=== PATIENT | female | born 1960 | race Caucasian/White ===

== ENCOUNTER 2017-09-01 10:43 | Observation (INO) | payer OTHER ==
[2017-09-01] MEDS ORDERED: Ondansetron ODT 4 MG TAB ONE ×2 (11:12→11:20)
[2017-09-01 11:32] LABS: #Basophils 0.1 thou/uL (0.0-0.2); #Eosinphils 0.1 thou/uL (0.0-0.7); #Lymphocytes 2.7 thou/uL (1.20-3.40); #Monocytes 1.1 thou/uL (0.11-0.59); #Neutrophils 5.4 thou/uL (1.40-6.50); %Basophils 0.8 % (0.0-1.0); %Eosinophils 1.4 % (0.0-10.0); %Monocytes 11.8 % (0.0-10.0); Hemoglobin 14.8 g/dL (12.0-16.0); Mean Corpuscular HGB CONC 34.2 g/dL (32.0-36.0); Mean Corpuscular Hemoglobin 30.5 pg (27.0-31.0); Mean Platelet Volume 7.1 fL (7.4-10.4); Platelet Count 266 thou/uL (130-400); RBC Distribution Width 11.9 % (11.5-14.5); Red Blood Cell (RBC) Count 4.86 mill/uL (4.20-5.40); White Blood Cell (WBC) Count 9.4 thou/uL (4.8-10.8)
[2017-09-01 12:01] LABS: ALT (SGPT) 20 U/L (8-55); AST (SGOT) 23 U/L (5-34); Albumin 4.4 g/dL (3.5-5.0); Alkaline Phosphatase 121 U/L (40-150); Anion Gap 12 mmol/L (10-20); BUN (Urea Nitrogen) 15 mg/dL (9.8-20.1); Bilirubin, Total 0.6 mg/dL (0.2-1.2); Calc. Creatinine Clearance 0 mL/min (70-130); Calcium 9.8 mg/dL (7.8-10.44); Carbon Dioxide 29 mmol/L (22-29); Chloride 97 mmol/L (98-107); Estimated GFR-MDRD 65; Glucose 106 mg/dL (70-105); Lipase 31 U/L (8-78); Protein, Total 8.4 g/dL (6.0-8.3); Sodium 136 mmol/L (136-145)
[2017-09-01 12:10] LABS: Potassium 2.2 mmol/L (3.5-5.1)
[2017-09-01] MEDS ORDERED: D5 1/2 NS w/20 mEq KCL 1,000 ML IV SCH (12:15)
--- NOTE | 2017-09-01 13:15 | CT ---
CT OF ABDOMEN AND PELVIS PERFORMED WITH INTRAVENOUS CONTRAST ENHANCEMENT: History: Abdominal pain, nausea, vomiting, diarrhea and hypotension. Patient began feeling ill . Reports fever and chills. Comparison: 10-28-13 FINDINGS: The lung bases are clear of any infiltrative process. The liver, spleen, and pancreas regions appear unremarkable. The gallbladder has been removed. There is evidence of a previous gastric bypass. Right and left adrenal glands and right and left kidneys are normal in size. There is no significant periaortic or mesenteric lymphadenopathy. Some slight swirling in the mesenteric vessels, but this is similar to what was seen on the 2014 examination and I do not see any signs of obstruction. There is no fat stranding within the mesentery. There are a few small mesenteric lymph nodes but these are al l nonspecific. CT OF PELVIS PERFORMED WITH CONTRAST ENHANCEMENT: The appendix is unremarkable. There is no evidence of any significant adenopathy, mass, or free fluid . IMPRESSION: 1. Post op gastric bypass change. I do not see any signs of obstruction. There is an anastomotic sutu re line related to some of the small bowel in the right lower quadrant. Some slight dilatation to the bowel loop in this area but I do not see any evidence that would suggest that there is an obstructiv e process associated with this. 2. Post op cholecystectomy change. POS: IGOR
[2017-09-01] MEDS ORDERED: Iopamidol 370 76% 50 ML VIAL FS ONE (13:38)
[2017-09-01] MEDS ORDERED: ISOVUE-370 76%-LOCM 1 ML ONE (13:38)
[2017-09-01] MEDS ORDERED: Ondansetron HCl/PF 4 MG/2 ML Vial IVP PRN (15:37)
[2017-09-01] MEDS ORDERED: Ondansetron ODT 4 MG TAB SL PRN (15:37)
[2017-09-01] MEDS ORDERED: Enoxaparin Sodium 40 MG/0.4 ML SYRINGE SC SCH (16:00)
[2017-09-01] MEDS: Potassium Chloride 20 MEQ TAB PO SCH ×3 (17:33→23:42)
[2017-09-01] MEDS: Acetaminophen 325 MG TAB PO PRN ×2 (17:39→23:04)
[2017-09-01] MEDS: NS 0.9% w/ 40 MEQ KCL 1,000 ML IV SCH (17:44)
[2017-09-01] MEDS: Famotidine 40 MG/4 ML VIAL SLOW IVP SCH (21:02)
[2017-09-01] MEDS: Zolpidem Tartrate 5 MG TAB PO PRN (23:42)
[2017-09-02] MEDS: NS 0.9% w/ 40 MEQ KCL 1,000 ML IV SCH (03:36)
[2017-09-02 05:08] LABS: ALT (SGPT) 17 U/L (8-55); AST (SGOT) 21 U/L (5-34); Albumin 3.4 g/dL (3.5-5.0); Alkaline Phosphatase 88 U/L (40-150); Anion Gap 9 mmol/L (10-20); BUN (Urea Nitrogen) 9 mg/dL (9.8-20.1); Bilirubin, Total 0.3 mg/dL (0.2-1.2); Calc. Creatinine Clearance 103 mL/min (70-130); Calcium 8.6 mg/dL (7.8-10.44); Carbon Dioxide 25 mmol/L (22-29); Chloride 111 mmol/L (98-107); Estimated GFR-MDRD 82; Globulin 2.6 g/dL (2.4-3.5); Glucose 91 mg/dL (70-105); Magnesium 2.1 mg/dL (1.6-2.6); Potassium 5.1 mmol/L (3.5-5.1); Sodium 140 mmol/L (136-145)
[2017-09-02 06:40] LABS: #Basophils 0.1 thou/uL (0.0-0.2); #Eosinphils 0.1 thou/uL (0.0-0.7); #Lymphocytes 2.4 thou/uL (1.20-3.40); #Monocytes 0.8 thou/uL (0.11-0.59); #Neutrophils 4.8 thou/uL (1.40-6.50); %Basophils 0.7 % (0.0-1.0); %Eosinophils 1.8 % (0.0-10.0); %Lymphocytes 28.9 % (21.0-51.0); %Neutrophils 58.7 % (42.0-75.0); Hemoglobin 11.6 g/dL (12.0-16.0); Mean Corpuscular HGB CONC 32.8 g/dL (32.0-36.0); Mean Corpuscular Hemoglobin 29.5 pg (27.0-31.0); Mean Corpuscular Volume 89.8 fl (81.0-99.0); Mean Platelet Volume 6.9 fL (7.4-10.4); Platelet Count 242 thou/uL (130-400); RBC Distribution Width 12.1 % (11.5-14.5); Red Blood Cell (RBC) Count 3.93 mill/uL (4.20-5.40); White Blood Cell (WBC) Count 8.1 thou/uL (4.8-10.8)
[2017-09-02] MEDS ORDERED: Levothyroxine Sodium 25 MCG TAB PO SCH ×2 (08:49→09:00)
[2017-09-02] MEDS ORDERED: Non-Formulary Item 1 EACH (Zolpidem Tartrate [Ambien] 10 MG) PO PRN (08:49)
[2017-09-02] MEDS ORDERED: Zolpidem Tartrate 5 MG TAB PO PRN (09:00)
[2017-09-02] MEDS: Famotidine 40 MG/4 ML VIAL SLOW IVP SCH ×2 (09:08→20:18)
[2017-09-02] MEDS: Escitalopram Oxalate 10 mg Tablet PO SCH (09:14)
[2017-09-02] MEDS: Ciprofloxacin 500 MG TAB PO SCH ×2 (09:14→20:18)
[2017-09-02] MEDS: Enoxaparin Sodium 40 MG/0.4 ML SYRINGE SC SCH (09:15)
[2017-09-02] MEDS: Zolpidem Tartrate 5 MG TAB PO PRN (21:28)
[2017-09-03 05:27] VITALS: TEMP 97.9
[2017-09-03] MEDS ORDERED: Levothyroxine Sodium 25 MCG TAB PO SCH (06:00)
[2017-09-03 06:10] VITALS: BMI 29.9
[2017-09-03] MEDS: Enoxaparin Sodium 40 MG/0.4 ML SYRINGE SC SCH (08:24)
[2017-09-03] MEDS: Famotidine 40 MG/4 ML VIAL SLOW IVP SCH (08:29)
[2017-09-03] MEDS: Escitalopram Oxalate 10 mg Tablet PO SCH (08:29)
[2017-09-03] MEDS: Ciprofloxacin 500 MG TAB PO SCH (08:30)
[2017-09-03 08:52] LABS: #Basophils 0.1 thou/uL (0.0-0.2); #Eosinphils 0.1 thou/uL (0.0-0.7); #Lymphocytes 2.1 thou/uL (1.20-3.40); #Monocytes 0.6 thou/uL (0.11-0.59); #Neutrophils 2.7 thou/uL (1.40-6.50); %Basophils 0.9 % (0.0-1.0); %Eosinophils 2.5 % (0.0-10.0); %Lymphocytes 37.1 % (21.0-51.0); %Monocytes 11.2 % (0.0-10.0); %Neutrophils 48.2 % (42.0-75.0); Hemoglobin 12.2 g/dL (12.0-16.0); Mean Corpuscular HGB CONC 34.4 g/dL (32.0-36.0); Mean Corpuscular Hemoglobin 31.2 pg (27.0-31.0); Mean Corpuscular Volume 90.8 fl (81.0-99.0); Mean Platelet Volume 6.6 fL (7.4-10.4); Platelet Count 216 thou/uL (130-400); RBC Distribution Width 12.3 % (11.5-14.5); Red Blood Cell (RBC) Count 3.92 mill/uL (4.20-5.40); White Blood Cell (WBC) Count 5.6 thou/uL (4.8-10.8)
[2017-09-03 09:07] LABS: Anion Gap 9 mmol/L (10-20); BUN (Urea Nitrogen) 6 mg/dL (9.8-20.1); Calc. Creatinine Clearance 99 mL/min (70-130); Calcium 8.9 mg/dL (7.8-10.44); Carbon Dioxide 27 mmol/L (22-29); Chloride 108 mmol/L (98-107); Estimated GFR-MDRD 78; Glucose 82 mg/dL (70-105); Magnesium 1.9 mg/dL (1.6-2.6); Potassium 3.8 mmol/L (3.5-5.1); Sodium 140 mmol/L (136-145)
--- NOTE | 2017-09-03 11:08 | PDOC.PN ---
- Subjective Encounter Start Date: 09/02/17 Encounter Start Time: 10:00 Pt did okay overnight, still feels weak. No f/c, no N/V, 8-10 BM, watery in lst 24 hours. no Gi bleeding, no cough or sputum. Just now trying to eat. 10 point ROS performed and neg for all systems except as per HPI - Objective Resuscitation Status: Resuscitation Status FULL:Full Resuscitation MAR Reviewed: Yes Vital Signs & Weight: Vital Signs (12 hours) Temp Pulse Resp BP Pulse Ox 09/03/17 08:00 97.9 F 65 18 09/03/17 07:36 97.2 F L 71 16 105/49 L 97 09/03/17 04:20 97.9 F 65 18 87/47 L 94 L Weight Admit Weight 166 lb 12.8 oz Weight 169 lb I&O: 09/02/17 09/03/17 09/04/17 06:59 06:59 06:59 Intake Total 1221 2100 Balance 1221 2100 Result Diagrams: 09/03/17 08:33 09/03/17 08:33 EKG Reviewed by me: Yes Phys Exam - Physical Examination Constitutional: NAD HEENT: PERRLA, moist MMs, sclera anicteric, oral pharynx no lesions Neck: no nodes, no JVD, supple, full ROM Respiratory: no wheezing, no rales, no rhonchi, clear to auscultation bilateral Cardiovascular: RRR, no significant murmur, no rub Gastrointestinal: soft, non-tender, no distention, positive bowel sounds Musculoskeletal: no edema, pulses present Neurological: non-focal, normal sensation, moves all 4 limbs Lymphatic: no nodes Dx/Plan (1) Acute gastroenteritis Code(s): K52.9 - NONINFECTIVE GASTROENTERITIS AND COLITIS, UNSPECIFIED Status : Acute Comment: suspect foodborne illness. Cipro 500mg po BID, home when intake exceeds output. (2) S/P gastric bypass Code(s): Z98.84 - BARIATRIC SURGERY STATUS Status: Chronic (3) Hypokalemia Code(s): E87.6 - HYPOKALEMIA Status: Resolved Comment: replaced. change IV fluids to NS without KCL (4) Insomnia Code(s): G47.00 - INSOMNIA, UNSPECIFIED Status: Chronic Qualifiers: Insomnia type: unspecified Qualified Code(s): G47.00 - Insomnia, unspecified (5) Moderate dehydration Code(s): E86.0 - DEHYDRATION Status: Resolved Comment: IV fluids until barry po, then will stop - Plan cont current plan of care, continue antibiotics, out of bed/ambulate * .
[2017-09-03 11:31] VITALS: BP 112/66
--- NOTE | 2017-09-03 12:21 | DIS ---
DATE OF ADMISSION: 09/01/2017 DATE OF DISCHARGE: 09/03/2017 PRIMARY CARE PHYSICIAN: Dr. Bety Anderson here in [facility]. DISCHARGE DIAGNOSES: 1. Foodborne acute gastroenteritis. 2. Hypokalemia. 3. Dehydration, moderate. 4. Intractable nausea and vomiting. 5. Status post bariatric surgery in the past. CONSULTATIONS: None. PROCEDURES: None. HISTORY AND PHYSICAL: Ms. Street is a 56-year-old female who presented to the ER with 1 week history of increasing nausea and vomiting, unable to keep food down. In the emergency department, she was noted to have low potassium and low blood pressure, primary doct or's prompting her presentation at the ER. We were subsequently called for admit. The patient was seen and examined by me and placed in observation. Overnight on 09/01/2017 to 2017, her potassium was improved. She was still having multiple liquid bowel movements and was havin g some nausea and not eating well. She continued on IV fluids and pressor diet. Overnight on 2017 to 09/03/2017, her appetite was markedly improved. Her stool volume markedly improved. She sti ll having multiple bowel movements, but much less volume. She had no belly pain and no nausea or vom iting, and was stable for discharge with outpatient followup. PHYSICAL EXAMINATION: The patient was seen and examined on the day of discharge. Discharge plan and disposition were discussed with the patient and his face to face at the bedside. DISCHARGE MEDICATIONS: 1. Cipro 500 mg p.o. b.i.d. for 4 more days. 2. Lexapro 10 mg p.o. daily. 3. Levothyroxine 25 mcg p.o. q.a.m. 4. Seroquel 100 mg p.o. at bedtime. 5. Ambien 10 mg p.o. at bedtime p.r.n. insomnia. FOLLOWUP APPOINTMENT: PCP, Dr. Anderson within a week. DISCHARGE ACTIVITY: As tolerated. DISCHARGE DIET: No restrictions. DISPOSITION CONDITION: Stable. DISPOSITION: The patient is being discharged home via private vehicle.
== END 2017-09-03 11:31 | disposition home or self-care (01) ==
LOC: ERS 10:43 → 2SW 14:11
PROVIDERS: ADMIT Internal Medicine Infectious Disease; ATTEND Internal Medicine Infectious Disease
DX: K52.89 Other specified noninfective gastroenteritis and colitis (principal); E87.6 Hypokalemia; E86.0 Dehydration; G47.00 Insomnia, unspecified; Z98.84 Bariatric surgery status; Z88.5 Allergy status to narcotic agent
CPT/HCPCS: 36415; 74177; 80048; 80053; 82274; 83630; 83690; 83735; 85025; 87045; 87046; 87077; 87324; 87328; 87329; 87449; 87899; 96361; 96365; 96366; 96375; 96376; A4216; G0378; J1650; Q0162

== ENCOUNTER 2018-02-16 13:06 | Outpatient (CLI) | payer OTHER | END 2018-02-16 13:07 | disposition home or self-care (01) | LOC: BICMAMMO 13:06 | PROVIDERS: ATTEND Family Medicine | DX: Z12.31 Encounter for screening mammogram for malignant neoplasm of breast (principal); R92.1 Mammographic calcification found on diagnostic imaging of breast | CPT/HCPCS: 77063; 77067 ==

== ENCOUNTER 2020-10-28 12:18 | Outpatient (CLI) | payer OTHER | END 2020-10-28 12:19 | disposition home or self-care (01) | LOC: BICMAMMO 12:18 | PROVIDERS: ATTEND Family Medicine | DX: Z12.31 Encounter for screening mammogram for malignant neoplasm of breast (principal) | CPT/HCPCS: 77063; 77067 ==

== ENCOUNTER 2022-01-29 13:07 | Outpatient (CLI) | payer OTHER | END 2022-01-29 13:08 | disposition home or self-care (01) | LOC: BICMAMMO 13:07 | PROVIDERS: ATTEND Family Medicine | DX: Z12.31 Encounter for screening mammogram for malignant neoplasm of breast (principal); R92.1 Mammographic calcification found on diagnostic imaging of breast; Z98.890 Other specified postprocedural states | CPT/HCPCS: 77063; 77067 ==

== ENCOUNTER 2024-06-01 13:59 | Outpatient (CLI) | payer BC | END 2024-06-01 14:00 | disposition home or self-care (01) | LOC: BICMAMMO 13:59 | PROVIDERS: ATTEND Family Medicine | DX: N63.13 Unspecified lump in the right breast, lower outer quadrant (principal); N60.01 Solitary cyst of right breast | CPT/HCPCS: 77066; G0279 ==